=== PATIENT | male | born 1970 | race Caucasian/White ===

== ENCOUNTER 2016-10-20 10:52 | Emergency (ER) | payer OTHER, SELFPAY ==
[~2016-10-20] VITALS: Ht 172.7 cm; Wt 80.0 kg
[2016-10-20 10:56] VITALS: BP 127/86
[2016-10-20 11:45] LABS: ASPARTATE AMINO TRANSFERASE 61 U/L (15-37); BLOOD UREA NITROGEN 7 mg/dL (7-18)
[2016-10-20 11:50] LABS: ACETAMINOPHEN < 2 mcg/mL (10-30)
[2016-10-20 12:12] LABS: DAU SCREEN DISCLAIMER
== END 2016-10-20 13:51 | disposition home or self-care (01) ==
LOC: ED 13:45
DX: F41.1 Generalized anxiety disorder (principal)
CPT/HCPCS: 36415; 80053; 80307; 80329; 85025; 99284; G0480